=== PATIENT | female | born 1970 | race Caucasian/White ===

== ENCOUNTER 2022-10-19 09:46 | Emergency (ER) | payer OTHER ==
[~2022-10-19] VITALS: Ht 162.6 cm; Wt 99.8 kg
--- NOTE | 2022-10-19 09:55 | NUR ---
PATIENT ASSISTED ON BEDPAN
--- NOTE | 2022-10-19 10:00 | NUR ---
PATIENT BIBA FROM HOME FOR PALPITATION AND CHEST PAIN, PLACE IN ROOM 1, ON ARRIVAL PATIENT PLACE ON MINE [employer], NO CHEST PAIN EDP AT BEDSIDE FOR ASSESSMENT AND ORDER.
[2022-10-19 10:28] LABS: BASOPHILS % (AUTO) 0.6 % (0.0-2.0); EOSINOPHILS # (AUTO) 0.1 K/uL (0.0-0.4); HEMATOCRIT 41.4 % (36-48); HEMOGLOBIN 13.7 g/dL (12.0-16.0); LYMPHOCYTES # (AUTO) 1.8 K/uL (1.0-5.5); LYMPHOCYTES % (AUTO) 25.5 % (20.5-51.5); MEAN CORPUSCULAR HEMOGLOBIN 28 pg (27-31); MEAN CORPUSCULAR HGB CONC 33 % (32-36); MEAN CORPUSCULAR VOLUME 84 fL (79.0-98.0); MONOCYTES # (AUTO) 0.2 K/uL (0.0-1.0); MONOCYTES % (AUTO) 3.4 % (1.7-9.3); NEUTROPHILS # (AUTO) 4.9 K/uL (1.8-7.7); NEUTROPHILS % (AUTO) 69.5 % (40.0-70.0); PLATELET COUNT (AUTO) 249 K/uL (130-430); RED BLOOD CELL COUNT(AUTO) 4.96 MIL/uL (4.2-6.2); RED CELL DISTRIBUTION WIDTH 13.9 % (9.0-15.0); WHITE BLOOD COUNT (AUTO) 7.1 K/uL (4.8-10.8)
--- NOTE | 2022-10-19 10:48 | NUR ---
PATIENT TAKEN TO CT SCAN.
[2022-10-19 10:56] LABS: ANION GAP 5 (5-15); CALCIUM 8.9 mg/dL (8.4-11.0); CHLORIDE 108 mmol/L (98-107); CREATININE 0.71 mg/dL (0.55-1.30); GFR AFRICAN AMERICAN 111 mL/min (>90); GLUCOSE 100 mg/dL (70-99); UREA NITROGEN, BLOOD 15 mg/dL (8-21)
[2022-10-19 11:08] LABS: ALANINE AMINOTRANSFERASE 24 U/L (12-78); ALBUMIN 3.2 g/dL (3.4-4.8); ASPARTATE AMINOTRANSFERASE 17 U/L (10-37); FREE T4 (FREE THYROXINE) 1.1 ng/dL (0.6-1.6); THYROID STIMULATING HORMONE 2.01 uIu/mL (0.34-4.82); TOTAL BILIRUBIN 0.3 mg/dL (0.0-1.0)
[2022-10-19 11:17] LABS: PROTHROMBIN TIME 10.1 SECS (9.5-12.5)
[2022-10-19 11:30] VITALS: BP_SYST 128
--- NOTE | 2022-10-19 11:40 | NUR ---
ALL RESULT BACK EDP REASSESS PATIENT AND D/C HOME WITH INSTRUCTION.
--- NOTE | 2022-10-19 11:48 | NUR ---
Patient given written and verbal discharge instructions and verbalizes understanding. ER MD discussed with patient the results and treatment provided. Patient in stable condition. ID arm band removed. IV catheter removed intact and dressing applied, no active bleeding. Rx of given. Patient educated on pain management and to follow up with PMD. Pain Scale 0. Opportunity for questions provided and answered. Medication side effect fact sheet provided.
== END 2022-10-19 11:47 | disposition home or self-care (01) ==
LOC: SED 09:46
DX: I47.1 Supraventricular tachycardia (principal); R00.2 Palpitations; Z79.899 Other long term (current) drug therapy
CPT/HCPCS: 36415; 71045; 80053; 82550; 83880; 84439; 84443; 84484; 85025; 85610-TC; 85730-TC; 93005; 99285